=== PATIENT | female | born 1945 | race Two or more races ===

== ENCOUNTER 2018-06-25 19:42 | Emergency (ER) | payer OTHER ==
[~2018-06-25] VITALS: Ht 149.9 cm; Wt 67.6 kg
[~2018-06-25 19:42] MED LIST: COZAAR100 MG; GLIPIZIDE-METFO1 TA4; LEVOTHYROXINE25 MCG; LIPITOR20 MG; NEURONTIN300 MG; SIMVASTATIN20 MG
[2018-06-25] MEDS ORDERED: LANTUS SOL100 UNIT/1 (20:05)
== END 2018-06-25 21:35 | disposition home or self-care (01) ==
LOC: ER 19:42
DX: R35.0 Frequency of micturition (principal)

== ENCOUNTER 2019-01-24 05:56 | Day surgery (SDC) | payer OTHER ==
[~2019-01-24 05:56] MED LIST changes: +COZAAR50 MG PO; +LANTUS; +LANTUS SOL100 UNIT/1; +METFORMIN HCL850 MG PO; +SYNTHROID75 MCG PO
[2019-01-24] MEDS ORDERED: ULTRACET PO (10:43)
[2019-01-24] MEDS ORDERED: MACROBID 100 M100 MG PO (10:43)
== END 2019-01-24 14:50 | disposition home or self-care (01) ==
LOC: CIR.AMB 05:56
DX: N81.3 Complete uterovaginal prolapse (principal)

== ENCOUNTER 2019-01-30 00:28 | Inpatient (IN) | payer OTHER ==
[~2019-01-30] VITALS: Ht 162.6 cm; Wt 63.0 kg
[~2019-01-30 00:28] MED LIST changes: +MACROBID 100 M100 MG PO; +ULTRACET PO
== END 2019-02-27 03:05 | disposition expired ==
LOC: ER 00:28 → ICU-2 02-01 12:17 → ICU 02-02 22:12
PROVIDERS: ADMIT Internal Medicine
PROC: 4A033R1 Measurement of Arterial Saturation, Peripheral, Percutaneous Approach (ICD-10-PCS; principal; 2019-02-01)
PROC: B020ZZZ Computerized Tomography (CT Scan) of Brain (ICD-10-PCS; 2019-02-01)
PROC: B325YZZ Computerized Tomography (CT Scan) of Bilateral Common Carotid Arteries using Other Contrast (ICD-10-PCS; 2019-02-01)
PROC: B328YZZ Computerized Tomography (CT Scan) of Bilateral Internal Carotid Arteries using Other Contrast (ICD-10-PCS; 2019-02-01)
PROC: 3E0F7GC Introduction of Other Therapeutic Substance into Respiratory Tract, Via Natural or Artificial Opening (ICD-10-PCS; 2019-02-03)
PROC: 8E0ZXY6 Isolation (ICD-10-PCS; 2019-02-03)
PROC: 0BH17EZ Insertion of Endotracheal Airway into Trachea, Via Natural or Artificial Opening (ICD-10-PCS; 2019-02-03)
PROC: 30233R1 Transfusion of Nonautologous Platelets into Peripheral Vein, Percutaneous Approach (ICD-10-PCS; 2019-02-03)
PROC: 5A1955Z Respiratory Ventilation, Greater than 96 Consecutive Hours (ICD-10-PCS; 2019-02-03)
PROC: 05H933Z Insertion of Infusion Device into Right Brachial Vein, Percutaneous Approach (ICD-10-PCS; 2019-02-06)
PROC: 0DH673Z Insertion of Infusion Device into Stomach, Via Natural or Artificial Opening (ICD-10-PCS; 2019-02-12)
PROC: 02HV33Z Insertion of Infusion Device into Superior Vena Cava, Percutaneous Approach (ICD-10-PCS; 2019-02-12)
PROC: BW41ZZZ Ultrasonography of Abdomen and Pelvis (ICD-10-PCS; 2019-02-20)
DX: I21.4 Non-ST elevation (NSTEMI) myocardial infarction (principal); I63.411 Cerebral infarction due to embolism of right middle cerebral artery; J81.0 Acute pulmonary edema; J96.01 Acute respiratory failure with hypoxia; G93.6 Cerebral edema; J15.0 Pneumonia due to Klebsiella pneumoniae; J15.1 Pneumonia due to Pseudomonas; B37.1 Pulmonary candidiasis; A41.1 Sepsis due to other specified staphylococcus; I61.8 Other nontraumatic intracerebral hemorrhage; T81.31XA Disruption of external operation (surgical) wound, not elsewhere classified, initial encounter; E87.0 Hyperosmolality and hypernatremia; N39.0 Urinary tract infection, site not specified; I67.82 Cerebral ischemia; E03.8 Other specified hypothyroidism; I24.8 Other forms of acute ischemic heart disease; N81.3 Complete uterovaginal prolapse; K46.9 Unspecified abdominal hernia without obstruction or gangrene; I48.0 Paroxysmal atrial fibrillation; E78.00 Pure hypercholesterolemia, unspecified; E11.65 Type 2 diabetes mellitus with hyperglycemia; Z16.12 Extended spectrum beta lactamase (ESBL) resistance; D64.89 Other specified anemias; I11.9 Hypertensive heart disease without heart failure; G46.3 Brain stem stroke syndrome; B96.1 Klebsiella pneumoniae [K. pneumoniae] as the cause of diseases classified elsewhere; Z74.01 Bed confinement status; L89.892 Pressure ulcer of other site, stage 2